=== PATIENT | male | born 1975 | race Caucasian/White ===

== ENCOUNTER 2017-12-07 04:36 | Emergency (ER) | payer MEDICARE ==
[2017-12-07] MEDS ORDERED: HYDROMORPHONE 1 MG/1 ML AMP ONE (05:00)
== END 2017-12-07 05:23 | disposition home or self-care (01) ==
LOC: EDH 04:36
DX: M25.561 Pain in right knee (principal); M25.562 Pain in left knee; N18.6 End stage renal disease; Z99.2 Dependence on renal dialysis; Z88.5 Allergy status to narcotic agent; Z88.6 Allergy status to analgesic agent; Z88.8 Allergy status to other drugs, medicaments and biological substances
CPT/HCPCS: 96372; 99283; J1170

== ENCOUNTER 2017-12-28 18:05 | Emergency (ER) | payer MEDICARE | END 2017-12-28 20:19 | disposition home or self-care (01) | LOC: EDH 18:05 | DX: S80.01XA Contusion of right knee, initial encounter (principal); N18.6 End stage renal disease; Z99.2 Dependence on renal dialysis; Z98.890 Other specified postprocedural states; Z88.6 Allergy status to analgesic agent; Z88.8 Allergy status to other drugs, medicaments and biological substances; W18.39XA Other fall on same level, initial encounter; Y93.89 Activity, other specified; Y92.89 Other specified places as the place of occurrence of the external cause; Y99.8 Other external cause status | CPT/HCPCS: 73562 ==

== ENCOUNTER 2017-12-30 00:33 | Emergency (ER) | payer MEDICARE ==
[2017-12-30 01:37] LABS: BASOPHILS % (AUTO) 0.7 % (0.0-5.0); HEMATOCRIT 33.1 % (42-54); LYMPHOCYTES % (AUTO) 30.7 % (21.0-51.0); MEAN CORPUSCULAR HEMOGLOBIN 31.3 pg (27.0-33.0); MEAN CORPUSCULAR HGB CONC 33.7 g/dL (32.0-36.0); MEAN CORPUSCULAR VOLUME 92.8 fL (79-99); MONOCYTES % (AUTO) 12.3 % (3.0-13.0); NEUTROPHILS % (AUTO) 54.3 % (40.0-77.0); NUCLEATED RED BLOOD CELLS 0.1 % (0.0-0.19); PLATELET COUNT (AUTO) 154 K/uL (130-400); RED BLOOD CELL COUNT(AUTO) 3.57 MIL/uL (4.50-6.20); RED CELL DISTRIBUTION WIDTH 18.7 % (11.0-15.5); WHITE BLOOD COUNT (AUTO) 4.9 K/uL (4.8-10.8)
[2017-12-30 01:52] LABS: ALBUMIN 3.6 g/dL (3.5-5.0); BILIRUBIN,TOTAL 0.5 mg/dL (0.2-1.0); POTASSIUM 4.9 mmol/L (3.5-5.1); TOTAL PROTEIN, SERUM 8.7 g/dL (6.0-8.3)
[2017-12-30 02:01] LABS: CREATININE 12.5 mg/dL (0.5-1.5)
[2017-12-30] MEDS ORDERED: HYOSCYAMINE SULFATE 0.125 MG TAB.SUBL SL ONE (02:28)
== END 2017-12-30 02:41 | disposition home or self-care (01) ==
LOC: EDH 00:33
DX: N18.6 End stage renal disease (principal); R10.84 Generalized abdominal pain; Z99.2 Dependence on renal dialysis; Z87.891 Personal history of nicotine dependence; Z88.6 Allergy status to analgesic agent; Z88.5 Allergy status to narcotic agent; Z88.8 Allergy status to other drugs, medicaments and biological substances
CPT/HCPCS: 36415; 80053; 82150; 83690; 85025

== ENCOUNTER 2018-02-10 00:09 | Emergency (ER) | payer MEDICARE ==
[2018-02-10] MEDS ORDERED: ACETAMINOPHEN-CODEINE ELIXIR 5 ML UDCUP ONE ×2 (00:27→02:40)
[2018-02-10] MEDS ORDERED: ACETAMINOPHEN ELIXIR 650 MG/20.3 ML UDCUP ONE (00:30)
[2018-02-10 00:53] LABS: BASOPHILS % (AUTO) 0.6 % (0.0-5.0); EOSINOPHILS % (AUTO) 4.4 % (0.0-8.0); HEMATOCRIT 22.9 % (42-54); LYMPHOCYTES % (AUTO) 25.1 % (21.0-51.0); MEAN CORPUSCULAR HEMOGLOBIN 31.3 pg (27.0-33.0); MEAN CORPUSCULAR HGB CONC 33.4 g/dL (32.0-36.0); MONOCYTES % (AUTO) 10.5 % (3.0-13.0); NEUTROPHILS % (AUTO) 59.4 % (40.0-77.0); NUCLEATED RED BLOOD CELLS 0.1 % (0.0-0.19); PLATELET COUNT (AUTO) 115 K/uL (130-400); RED BLOOD CELL COUNT(AUTO) 2.43 MIL/uL (4.50-6.20); WHITE BLOOD COUNT (AUTO) 4.3 K/uL (4.8-10.8)
[2018-02-10 01:04] LABS: ALBUMIN 2.8 g/dL (3.5-5.0); BILIRUBIN,TOTAL 0.3 mg/dL (0.2-1.0); POTASSIUM 5.5 mmol/L (3.5-5.1); TOTAL PROTEIN, SERUM 7.4 g/dL (6.0-8.3)
[2018-02-10] MEDS ORDERED: SODIUM CHLORIDE 0.9% 1000ML 1,000 ML IV ONE (01:07)
[2018-02-10] MEDS ORDERED: IOPAMIDOL-370 75 ML VIAL IV ONE (01:10)
[2018-02-10 02:19] LABS: APPEARANCE,URINE Turbid (CLEAR); BILIRUBIN,URINE Negative (NEGATIVE); COLOR,URINE Orange (YELLOW); GLUCOSE, URINE (UA) TRACE mg/dL (NEGATIVE); KETONES,URINE Negative (NEGATIVE); LEUKOCYTE ESTERASE ,URINE Moderate (NEGATIVE); NITRATE,URINE Negative (NEGATIVE); OCCULT BLOOD,URINE Large (NEGATIVE); PH,URINE >=9.0 (5.0-8.0); PROTEIN,URINE >=1000 (NEGATIVE); UROBILINOGEN,URINE 0.2 mg/dL (0.2-1.0)
[2018-02-10 02:32] LABS: BACTERIA,URINE Few /HPF (None Seen); RBC,URINE 51-100 /HPF (0-1); WBC,URINE 51-100 /HPF (0-1)
[2018-02-10] MEDS ORDERED: CEFTRIAXONE SODIUM 1 GM ONE (02:40)
[2018-02-10] MEDS ORDERED: LIDOCAINE HCL-MPF 1% 2ML VIAL ONE (02:40)
[2018-02-10] MEDS ORDERED: SODIUM POLYSTYRENE SULFONATE 15 GM/60 ML ML ONE (02:40)
== END 2018-02-10 02:54 | disposition home or self-care (01) ==
LOC: EDH 00:09
DX: N39.0 Urinary tract infection, site not specified (principal); N18.6 End stage renal disease; Z99.2 Dependence on renal dialysis; Z88.5 Allergy status to narcotic agent; Z88.6 Allergy status to analgesic agent; Z88.8 Allergy status to other drugs, medicaments and biological substances
CPT/HCPCS: 36415; 74176; 80053; 81001; 85025; 96372; 99285; J0696; J3490; J7030; Q9967

== ENCOUNTER 2018-05-29 14:41 | Emergency (ER) | payer MEDICARE ==
[2018-05-29 16:21] LABS: BASOPHILS % (AUTO) 0.4 % (0.0-5.0); EOSINOPHILS % (AUTO) 4.1 % (0.0-8.0); HEMATOCRIT 21.8 % (42-54); MEAN CORPUSCULAR HEMOGLOBIN 31.1 pg (27.0-33.0); MEAN CORPUSCULAR HGB CONC 33.3 g/dL (32.0-36.0); MEAN CORPUSCULAR VOLUME 93.5 fL (79-99); MONOCYTES % (AUTO) 8.6 % (3.0-13.0); NEUTROPHILS % (AUTO) 63.9 % (40.0-77.0); PLATELET COUNT (AUTO) 135 K/uL (130-400); RED BLOOD CELL COUNT(AUTO) 2.33 MIL/uL (4.50-6.20); RED CELL DISTRIBUTION WIDTH 22.1 % (11.0-15.5); WHITE BLOOD COUNT (AUTO) 3.4 K/uL (4.8-10.8)
[2018-05-29] MEDS ORDERED: SODIUM CHLORIDE 0.9% 1000ML 1,000 ML IV ONE (16:25)
[2018-05-29] MEDS ORDERED: ONDANSETRON HCL 4 MG/2 ML VIAL ONE (16:25)
[2018-05-29] MEDS ORDERED: HYDROMORPHONE 1 MG/1 ML AMP ONE ×2 (16:26→18:04)
[2018-05-29 16:32] LABS: CREATININE 6.2 mg/dL (0.5-1.5); POTASSIUM 4.8 mmol/L (3.5-5.1)
[2018-05-29 16:36] LABS: ALBUMIN 2.5 g/dL (3.5-5.0); BILIRUBIN,TOTAL 0.4 mg/dL (0.2-1.0); TOTAL PROTEIN, SERUM 7.8 g/dL (6.0-8.3)
== END 2018-05-29 18:36 | disposition home or self-care (01) ==
LOC: EDH 14:41
DX: R10.31 Right lower quadrant pain (principal); D64.9 Anemia, unspecified; N18.6 End stage renal disease; Z94.0 Kidney transplant status; Z91.041 Radiographic dye allergy status; Z88.6 Allergy status to analgesic agent; Z88.8 Allergy status to other drugs, medicaments and biological substances; Z99.2 Dependence on renal dialysis
CPT/HCPCS: 36415; 74176; 80053; 83605; 83690; 85025; 87040 ×2; 96374; 96375; 96376; 99285; J1170 ×2; J2405; J7030

== ENCOUNTER 2018-06-06 21:31 | Inpatient (IN) | payer MEDICARE ==
[~2018-06-06] VITALS: Ht 182.9 cm; Wt 81.1 kg
[2018-06-06] MEDS ORDERED: ACETAMINOPHEN-CODEINE ELIXIR 5 ML UDCUP ONE (22:10)
[2018-06-06 22:26] LABS: BASOPHILS % (AUTO) 2.4 % (0.0-5.0); EOSINOPHILS % (AUTO) 5.2 % (0.0-8.0); HEMATOCRIT 23.6 % (42-54); LYMPHOCYTES % (AUTO) 29.7 % (21.0-51.0); MEAN CORPUSCULAR HEMOGLOBIN 31.2 pg (27.0-33.0); MEAN CORPUSCULAR HGB CONC 32.7 g/dL (32.0-36.0); MEAN CORPUSCULAR VOLUME 95.2 fL (79-99); MONOCYTES % (AUTO) 8.9 % (3.0-13.0); NEUTROPHILS % (AUTO) 53.8 % (40.0-77.0); PLATELET COUNT (AUTO) 149 K/uL (130-400); RED BLOOD CELL COUNT(AUTO) 2.48 MIL/uL (4.50-6.20); RED CELL DISTRIBUTION WIDTH 21.5 % (11.0-15.5); WHITE BLOOD COUNT (AUTO) 3.2 K/uL (4.8-10.8)
[2018-06-06 22:41] LABS: ALBUMIN 2.6 g/dL (3.5-5.0); BILIRUBIN,TOTAL 0.4 mg/dL (0.2-1.0); POTASSIUM 5.2 mmol/L (3.5-5.1); TOTAL PROTEIN, SERUM 7.4 g/dL (6.0-8.3)
[2018-06-06 22:46] LABS: CREATININE 10.1 mg/dL (0.5-1.5)
[2018-06-07 01:27] VITALS: BP 133/80
[2018-06-07] MEDS ORDERED: ACETAMINOPHEN 325 MG TAB PO PRN (02:15)
[2018-06-07] MEDS ORDERED: HYDROMORPHONE HCL 2 MG/ML VIAL IVP PRN ×2 (02:15→13:45)
[2018-06-07] MEDS ORDERED: PROMETHAZINE HCL 25 MG/ML 1ML AMPULE IM PRN (02:15)
[2018-06-07] MEDS ORDERED: HYDROMORPHONE 1 MG/1 ML AMP ONE ×2 (02:16→06:12)
[2018-06-07] MEDS ORDERED: ZOSYN 3.375GM+NS 50ML 50 ML IV ONE (02:21)
[2018-06-07] MEDS ORDERED: LORA2TAB2 PO (03:33)
[2018-06-07] MEDS ORDERED: ZOLP10TA2 PO (03:33)
[2018-06-07] MEDS ORDERED: HYDR4TAB4 PO (03:33)
[2018-06-07] MEDS: ZOSYN 3.375GM+NS 50ML 50 ML IV SCH ×2 (03:35→17:06)
[2018-06-07 04:06] VITALS: BP 140/84
[2018-06-07 08:00] VITALS: BP 141/81
[2018-06-07] MEDS ORDERED: MORPHINE SULFATE 2 MG/ML 1ML SYG IM ONE (08:45)
[2018-06-07] MEDS ORDERED: HYDROMORPHONE HCL 2 MG/ML VIAL IVP SCH (08:45)
[2018-06-07] MEDS: PANTOPRAZOLE SODIUM 40 MG TABLET.DR PO SCH (08:46)
[2018-06-07] MEDS: ENOXAPARIN SODIUM 30 MG/0.3 ML SQ SCH ×2 (08:48→08:51)
[2018-06-07] MEDS ORDERED: ALBUMIN (HUMAN) 25% 100 ML IV PRN (10:00)
[2018-06-07] MEDS ORDERED: 0.9% SODIUM CHLORIDE 250 ML IV BAG IV PRN (10:00)
[2018-06-07] MEDS ORDERED: SODIUM CHLORIDE 0.9% 1000ML 1,000 ML IV PRN (10:00)
[2018-06-07 10:22] LABS: BASOPHILS % (AUTO) 3.6 % (0.0-5.0); EOSINOPHILS % (AUTO) 4.6 % (0.0-8.0); HEMATOCRIT 22.1 % (42-54); LYMPHOCYTES % (AUTO) 27.7 % (21.0-51.0); MEAN CORPUSCULAR HGB CONC 32.9 g/dL (32.0-36.0); MEAN CORPUSCULAR VOLUME 94.3 fL (79-99); MONOCYTES % (AUTO) 8.1 % (3.0-13.0); PLATELET COUNT (AUTO) 120 K/uL (130-400); RED BLOOD CELL COUNT(AUTO) 2.34 MIL/uL (4.50-6.20); RED CELL DISTRIBUTION WIDTH 21.3 % (11.0-15.5); WHITE BLOOD COUNT (AUTO) 3.4 K/uL (4.8-10.8)
[2018-06-07 10:48] LABS: INR 1.12 (0.85-1.15); PARTIAL THROMBOPLASTIN TIME 34.2 SEC (26.3-35.5); PROTHROMBIN TIME 11.7 SEC (9.6-11.6)
[2018-06-07 10:50] LABS: ALBUMIN 2.5 g/dL (3.5-5.0); BILIRUBIN,TOTAL 0.4 mg/dL (0.2-1.0)
[2018-06-07 11:17] LABS: CREATININE 10.8 mg/dL (0.5-1.5)
[2018-06-07 11:18] LABS: POTASSIUM 5.5 mmol/L (3.5-5.1)
[2018-06-07] MEDS ORDERED: ZOLPIDEM TARTRATE 5 MG TAB PO PRN (11:30)
[2018-06-07] MEDS ORDERED: HYDROMORPHONE HCL 2 MG TAB PO PRN (11:30)
[2018-06-07 11:42] VITALS: BP 144/93
[2018-06-07] MEDS: HEPARIN SODIUM 5000UNIT/ML 1ML VIAL IJ PRN (12:55)
[2018-06-07] MEDS: HYDROMORPHONE 1 MG/1 ML AMP IVP PRN ×3 (14:01→22:05)
[2018-06-07 16:00] VITALS: BP 138/82
[2018-06-07] MEDS: EPOETIN ALFA 10,000 UNIT/ML VIAL SQ SCH (19:27)
[2018-06-07 20:00] VITALS: BP 130/78
[2018-06-08] VITALS (7 sets, daily range): BP systolic 139–159; BP diastolic 82–93
[2018-06-08] MEDS: HYDROMORPHONE 1 MG/1 ML AMP IVP PRN ×6 (02:03→22:26)
[2018-06-08 03:53] LABS: BASOPHILS % (AUTO) 0.7 % (0.0-5.0); EOSINOPHILS % (AUTO) 5.5 % (0.0-8.0); LYMPHOCYTES % (AUTO) 27.3 % (21.0-51.0); MEAN CORPUSCULAR HEMOGLOBIN 31.2 pg (27.0-33.0); MEAN CORPUSCULAR HGB CONC 33.3 g/dL (32.0-36.0); MEAN CORPUSCULAR VOLUME 93.6 fL (79-99); NEUTROPHILS % (AUTO) 57.5 % (40.0-77.0); PLATELET COUNT (AUTO) 139 K/uL (130-400); RED BLOOD CELL COUNT(AUTO) 2.45 MIL/uL (4.50-6.20); RED CELL DISTRIBUTION WIDTH 21.4 % (11.0-15.5); WHITE BLOOD COUNT (AUTO) 3.7 K/uL (4.8-10.8)
[2018-06-08 04:09] LABS: % IRON SATURATION 43.2 % (30-44)
[2018-06-08 04:20] LABS: ALBUMIN 2.5 g/dL (3.5-5.0); BILIRUBIN,TOTAL 0.4 mg/dL (0.2-1.0); CREATININE 7.2 mg/dL (0.5-1.5); PHOSPHORUS 6.3 mg/dL (2.5-4.9); POTASSIUM 4.8 mmol/L (3.5-5.1)
[2018-06-08] MEDS: ZOSYN 3.375GM+NS 50ML 50 ML IV SCH ×2 (06:30→18:07)
[2018-06-08] MEDS: ENOXAPARIN SODIUM 30 MG/0.3 ML SQ SCH (10:17)
[2018-06-08] MEDS: PANTOPRAZOLE SODIUM 40 MG TABLET.DR PO SCH (10:17)
[2018-06-08] MEDS: EPOETIN ALFA 10,000 UNIT/ML VIAL SQ SCH (17:28)
[2018-06-09] MEDS: HYDROMORPHONE 1 MG/1 ML AMP IVP PRN ×3 (02:26→10:36)
[2018-06-09 03:00] VITALS: BP 138/84
[2018-06-09 04:14] LABS: HEPATITIS Bs ANTIGEN SCREEN P Negative (Negative)
[2018-06-09] MEDS: ZOSYN 3.375GM+NS 50ML 50 ML IV SCH ×2 (05:00→06:28)
[2018-06-09 05:05] LABS: HEMATOCRIT 24.3 % (42-54); MEAN CORPUSCULAR HEMOGLOBIN 30.4 pg (27.0-33.0); MEAN CORPUSCULAR HGB CONC 32.4 g/dL (32.0-36.0); MEAN CORPUSCULAR VOLUME 93.9 fL (79-99); PLATELET COUNT (AUTO) 116 K/uL (130-400); RED BLOOD CELL COUNT(AUTO) 2.59 MIL/uL (4.50-6.20); RED CELL DISTRIBUTION WIDTH 21.1 % (11.0-15.5); WHITE BLOOD COUNT (AUTO) 3.9 K/uL (4.8-10.8)
[2018-06-09 05:26] LABS: LYMPHOCYTES % (MANUAL) 28 % (22-44); MAN.DIFF COMMENT-IMPRESSION MANUAL DIFFERENTIAL; MONOCYTES % (MANUAL) 4 % (2-9); PLATELET MORPHOLOGY COMMENT SLIGHTLY DECREASED; SEGMENTED NEUTROPHILS % 68 % (40-70)
[2018-06-09 05:38] LABS: PHOSPHORUS 6.6 mg/dL (2.5-4.9); POTASSIUM 5.2 mmol/L (3.5-5.1)
[2018-06-09 05:44] LABS: CREATININE 9.1 mg/dL (0.5-1.5)
[2018-06-09] MEDS ORDERED: EPOETIN ALFA 10,000 UNIT/ML VIAL SQ SCH (08:00)
[2018-06-09 08:13] VITALS: BP 149/93
[2018-06-09] MEDS: ENOXAPARIN SODIUM 30 MG/0.3 ML SQ SCH (09:00)
[2018-06-09] MEDS: PANTOPRAZOLE SODIUM 40 MG TABLET.DR PO SCH (09:00)
[2018-06-09] MEDS: HEPARIN SODIUM 5000UNIT/ML 1ML VIAL IJ PRN (10:11)
[2018-06-09 11:47] VITALS: BP 133/88
== END 2018-06-09 12:55 | disposition home or self-care (01) | DRG 640 ==
LOC: EDH 21:31 → EDHIP 06-07 00:17 → 3AH 06-07 00:47
PROVIDERS: ADMIT Internal Medicine; ATTEND Internal Medicine
PROC: 5A1D70Z Performance of Urinary Filtration, Intermittent, Less than 6 Hours Per Day (ICD-10-PCS; principal; 2018-06-07)
PROC: 5A1D70Z Performance of Urinary Filtration, Intermittent, Less than 6 Hours Per Day (ICD-10-PCS; 2018-06-09)
DX: E87.70 Fluid overload, unspecified (principal); N18.6 End stage renal disease; E43 Unspecified severe protein-calorie malnutrition; F11.20 Opioid dependence, uncomplicated; K86.1 Other chronic pancreatitis; I12.0 Hypertensive chronic kidney disease with stage 5 chronic kidney disease or end stage renal disease; E87.5 Hyperkalemia; D63.1 Anemia in chronic kidney disease; D72.819 Decreased white blood cell count, unspecified; E78.00 Pure hypercholesterolemia, unspecified; G89.29 Other chronic pain; K59.00 Constipation, unspecified; R06.01 Orthopnea; Z96.659 Presence of unspecified artificial knee joint; Z68.24 Body mass index [BMI] 24.0-24.9, adult; Z88.5 Allergy status to narcotic agent; Z88.8 Allergy status to other drugs, medicaments and biological substances; Z91.19 Patient's noncompliance with other medical treatment and regimen; Z91.15 Patient's noncompliance with renal dialysis; Z99.2 Dependence on renal dialysis; Z90.5 Acquired absence of kidney; Z98.85 Transplanted organ removal status; Z80.0 Family history of malignant neoplasm of digestive organs
CPT/HCPCS: 36415; 71045; 80048; 80053; 83540; 83550; 84100; 85025; 85610; 85730; 86704; 86706; 87040; 87070; 87076; 87077; 87186; 87340; 87520; 90935; 93005; J0885; J1170; J1644; J1650; J2543; J2550; J7030

== ENCOUNTER 2018-06-28 08:36 | Emergency (ER) | payer MEDICARE ==
[~2018-06-28 08:36] MED LIST: HYDR4TAB4 PO; LORA2TAB2 PO; ZOLP10TA2 PO
[2018-06-28 09:00] LABS: BASOPHILS % (AUTO) 0.9 % (0.0-5.0); EOSINOPHILS % (AUTO) 3.6 % (0.0-8.0); HEMATOCRIT 29.5 % (42-54); LYMPHOCYTES % (AUTO) 32.2 % (21.0-51.0); MEAN CORPUSCULAR HEMOGLOBIN 32.8 pg (27.0-33.0); MEAN CORPUSCULAR HGB CONC 33.7 g/dL (32.0-36.0); MEAN CORPUSCULAR VOLUME 97.5 fL (79-99); MONOCYTES % (AUTO) 9.1 % (3.0-13.0); NEUTROPHILS % (AUTO) 54.2 % (40.0-77.0); PLATELET COUNT (AUTO) 168 K/uL (130-400); RED BLOOD CELL COUNT(AUTO) 3.03 MIL/uL (4.50-6.20); RED CELL DISTRIBUTION WIDTH 21.4 % (11.0-15.5); WHITE BLOOD COUNT (AUTO) 3.6 K/uL (4.8-10.8)
[2018-06-28 09:07] LABS: CREATININE 5.1 mg/dL (0.5-1.5); POTASSIUM 4.1 mmol/L (3.5-5.1)
[2018-06-28 09:11] LABS: ALBUMIN 3.6 g/dL (3.5-5.0); BILIRUBIN,TOTAL 0.4 mg/dL (0.2-1.0); TOTAL PROTEIN, SERUM 8.9 g/dL (6.0-8.3)
== END 2018-06-28 12:32 | disposition left against medical advice (07) ==
LOC: EDH 08:36
DX: R07.89 Other chest pain (principal); N18.6 End stage renal disease; Z99.2 Dependence on renal dialysis; Z94.0 Kidney transplant status; Z88.6 Allergy status to analgesic agent; Z88.5 Allergy status to narcotic agent; Z88.8 Allergy status to other drugs, medicaments and biological substances; Z91.041 Radiographic dye allergy status
CPT/HCPCS: 36415; 71045; 80053; 83690; 84484; 85025; 93005; 93990

== ENCOUNTER 2018-08-12 20:19 | Emergency (ER) | payer MEDICARE ==
[~2018-08-12 20:19] MED LIST changes: +AMOX-426 PO
[2018-08-12] MEDS ORDERED: HYDROMORPHONE 1 MG/1 ML AMP ONE (22:40)
[2018-08-12 23:51] LABS: BASOPHILS % (AUTO) 0.5 % (0.0-5.0); HEMATOCRIT 23.4 % (42-54); LYMPHOCYTES % (AUTO) 24.3 % (21.0-51.0); MEAN CORPUSCULAR HGB CONC 32.9 g/dL (32.0-36.0); MEAN CORPUSCULAR VOLUME 100.1 fL (79-99); NEUTROPHILS % (AUTO) 62.2 % (40.0-77.0); NUCLEATED RED BLOOD CELLS 0.1 % (0.0-0.19); PLATELET COUNT (AUTO) 100 K/uL (130-400); RED BLOOD CELL COUNT(AUTO) 2.33 MIL/uL (4.50-6.20); RED CELL DISTRIBUTION WIDTH 20.1 % (11.0-15.5); WHITE BLOOD COUNT (AUTO) 3.1 K/uL (4.8-10.8)
[2018-08-13 00:02] LABS: CREATININE 6.8 mg/dL (0.5-1.5); POTASSIUM 5.9 mmol/L (3.5-5.1)
[2018-08-13] MEDS ORDERED: HYDROMORPHONE 1 MG/1 ML AMP ONE (00:31)
== END 2018-08-13 02:30 | disposition home or self-care (01) ==
LOC: EDH 20:19
DX: D61.818 Other pancytopenia (principal); N18.6 End stage renal disease; Z99.2 Dependence on renal dialysis; Z94.0 Kidney transplant status; Z88.6 Allergy status to analgesic agent; Z88.8 Allergy status to other drugs, medicaments and biological substances; Z88.1 Allergy status to other antibiotic agents; Z91.041 Radiographic dye allergy status
CPT/HCPCS: 36415; 74176; 80048; 82270; 85025; 85651; 86140; 87040; 96374; 96376; 99284; J1170 ×2

== ENCOUNTER 2018-08-13 22:51 | Emergency (ER) | payer MEDICARE ==
[2018-08-13 23:24] LABS: WHITE BLOOD COUNT (AUTO) 2.8 K/uL (4.8-10.8)
[2018-08-13 23:30] LABS: CREATININE 4.4 mg/dL (0.5-1.5); POTASSIUM 5.3 mmol/L (3.5-5.1)
[2018-08-13 23:34] LABS: ALBUMIN 3.2 g/dL (3.5-5.0); BILIRUBIN,TOTAL 0.4 mg/dL (0.2-1.0); TOTAL PROTEIN, SERUM 7.4 g/dL (6.0-8.3)
[2018-08-13 23:41] LABS: BASOPHILS % (AUTO) 0.7 % (0.0-5.0); EOSINOPHILS % (AUTO) 5.3 % (0.0-8.0); HEMATOCRIT 24.8 % (42-54); LYMPHOCYTES % (AUTO) 24.6 % (21.0-51.0); MEAN CORPUSCULAR HEMOGLOBIN 32.4 pg (27.0-33.0); MEAN CORPUSCULAR HGB CONC 32.7 g/dL (32.0-36.0); MEAN CORPUSCULAR VOLUME 99.1 fL (79-99); MONOCYTES % (AUTO) 9.4 % (3.0-13.0); NUCLEATED RED BLOOD CELLS 0.1 % (0.0-0.19); PLATELET COUNT (AUTO) 111 K/uL (130-400); RED CELL DISTRIBUTION WIDTH 20.1 % (11.0-15.5)
[2018-08-13] MEDS ORDERED: PROMETHAZINE HCL 25 MG/ML 1ML AMPULE IM ONE (23:45)
[2018-08-14 00:10] LABS: EOSINOPHILS % (MANUAL) 5 % (1-6); LYMPHOCYTES % (MANUAL) 26 % (22-44); MAN.DIFF COMMENT-IMPRESSION MANUAL DIFFERENTIAL; MONOCYTES % (MANUAL) 11 % (2-9); SEGMENTED NEUTROPHILS % 58 % (40-70)
[2018-08-14 00:12] LABS: PLATELET MORPHOLOGY COMMENT SLIGHTLY DECREASED
[2018-08-14] MEDS ORDERED: TRAMADOL HCL 50 MG TABLET ONE (00:47)
== END 2018-08-14 01:01 | disposition home or self-care (01) ==
LOC: EDH 22:51
DX: G89.29 Other chronic pain (principal); R10.9 Unspecified abdominal pain; D61.818 Other pancytopenia; N18.6 End stage renal disease; Z99.2 Dependence on renal dialysis; Z94.0 Kidney transplant status; Z88.6 Allergy status to analgesic agent; Z88.5 Allergy status to narcotic agent; Z88.1 Allergy status to other antibiotic agents; Z88.8 Allergy status to other drugs, medicaments and biological substances; Z91.041 Radiographic dye allergy status
CPT/HCPCS: 36415; 80053; 83690; 85025; 96372; 99283; J2550

== ENCOUNTER 2018-08-19 14:07 | Emergency (ER) | payer MEDICARE | END 2018-08-19 15:32 | disposition home or self-care (01) | LOC: EDH 14:07 | DX: G89.29 Other chronic pain (principal); R10.11 Right upper quadrant pain; R10.31 Right lower quadrant pain; N18.6 End stage renal disease; Z99.2 Dependence on renal dialysis; Z94.0 Kidney transplant status; Z98.890 Other specified postprocedural states; Z88.5 Allergy status to narcotic agent; Z88.6 Allergy status to analgesic agent; Z91.041 Radiographic dye allergy status; Z88.8 Allergy status to other drugs, medicaments and biological substances ==

== ENCOUNTER 2018-10-26 16:51 | Inpatient (IN) | payer MEDICARE ==
[2018-10-26 17:48] LABS: BASOPHILS % (AUTO) 2.8 % (0.0-5.0); EOSINOPHILS % (AUTO) 3.1 % (0.0-8.0); LYMPHOCYTES % (AUTO) 25.9 % (21.0-51.0); MEAN CORPUSCULAR HEMOGLOBIN 30.8 pg (27.0-33.0); MEAN CORPUSCULAR HGB CONC 32.5 g/dL (32.0-36.0); MONOCYTES % (AUTO) 5.8 % (3.0-13.0); NEUTROPHILS % (AUTO) 62.4 % (40.0-77.0); PLATELET COUNT (AUTO) 128 K/uL (130-400); RED BLOOD CELL COUNT(AUTO) 2.13 MIL/uL (4.50-6.20); RED CELL DISTRIBUTION WIDTH 19.7 % (11.0-15.5); WHITE BLOOD COUNT (AUTO) 4.4 K/uL (4.8-10.8)
[2018-10-26 18:01] LABS: INR 1.11 (0.85-1.15); PROTHROMBIN TIME 11.6 SEC (9.6-11.6)
[2018-10-26 18:03] LABS: ALBUMIN 2.8 g/dL (3.5-5.0); BILIRUBIN,TOTAL 0.5 mg/dL (0.2-1.0); TOTAL PROTEIN, SERUM 6.9 g/dL (6.0-8.3)
[2018-10-26 18:05] LABS: CREATININE 9.5 mg/dL (0.5-1.5); POTASSIUM 6.7 mmol/L (3.5-5.1)
[2018-10-26 18:17] LABS: HEMATOCRIT 20.3 % (42-54)
[2018-10-26] MEDS ORDERED: DEXTROSE 50%-WATER 50 ML DISP.SYRIN IV ONE (19:57)
[2018-10-26] MEDS ORDERED: SODIUM BICARB 50MEQ 50ML VIAL ONE (19:57)
[2018-10-26] MEDS ORDERED: CALCIUM GLUCONATE 1 GM/10 ML VIAL IV ONE (19:57)
[2018-10-26] MEDS ORDERED: INSULIN HUMULIN R 100 UNIT/ML 3ML ONE (19:58)
[2018-10-26] MEDS ORDERED: LORAZEPAM 2 MG TABLET PO PRN (20:00)
[2018-10-26] MEDS ORDERED: ZOLPIDEM TARTRATE 5 MG TAB PO PRN (20:00)
[2018-10-26] MEDS ORDERED: HYDROMORPHONE 1 MG/1 ML AMP ONE (20:02)
[2018-10-26] MEDS ORDERED: ALBUTEROL SULFATE 0.083% 2.5 MG/3 ML INH IH ONE (20:31)
[2018-10-26] MEDS ORDERED: SODIUM CHLORIDE 0.9% 100 ML IV ONE (21:50)
[2018-10-26 23:00] VITALS: BP 147/101
[2018-10-27] MEDS: HYDROMORPHONE HCL 2 MG TAB PO PRN ×2 (00:13→02:14)
--- NOTE | 2018-10-27 00:28 | NUR ---
PT REFUSED DILAUDID 4 MG PO AND REQUESTING MD TO CHANGE MEDICATION TO IV. MD PAGED; AWAITING CALL BACK.
[2018-10-27 03:49] LABS: BASOPHILS % (AUTO) 0.4 % (0.0-5.0); EOSINOPHILS % (AUTO) 4.4 % (0.0-8.0); LYMPHOCYTES % (AUTO) 33.5 % (21.0-51.0); MEAN CORPUSCULAR HEMOGLOBIN 31.5 pg (27.0-33.0); MEAN CORPUSCULAR HGB CONC 33.6 g/dL (32.0-36.0); MEAN CORPUSCULAR VOLUME 93.6 fL (79-99); MONOCYTES % (AUTO) 7.8 % (3.0-13.0); NEUTROPHILS % (AUTO) 53.9 % (40.0-77.0); PLATELET COUNT (AUTO) 108 K/uL (130-400); RED BLOOD CELL COUNT(AUTO) 1.76 MIL/uL (4.50-6.20); RED CELL DISTRIBUTION WIDTH 19.6 % (11.0-15.5); WHITE BLOOD COUNT (AUTO) 3.5 K/uL (4.8-10.8)
[2018-10-27 03:56] LABS: INR 1.13 (0.85-1.15); PARTIAL THROMBOPLASTIN TIME 32.9 SEC (26.3-35.5); PROTHROMBIN TIME 11.8 SEC (9.6-11.6)
[2018-10-27 04:03] LABS: HEMATOCRIT 16.5 % (42-54)
[2018-10-27 04:10] LABS: ALBUMIN 2.6 g/dL (3.5-5.0); BILIRUBIN,TOTAL 0.4 mg/dL (0.2-1.0); TOTAL PROTEIN, SERUM 6.1 g/dL (6.0-8.3)
[2018-10-27 04:13] LABS: CREATININE 10.3 mg/dL (0.5-1.5); POTASSIUM 6.1 mmol/L (3.5-5.1)
[2018-10-27 04:46] VITALS: BP 154/99
--- NOTE | 2018-10-27 06:00 | NUR ---
REFUSAL OF TREATMENT PT REFUSING PROTONIX DRIP. TEACHING PROVIDED ON IMPORTANCE OF MEDICAL TREATMENT COMPLIANCE, BUT STILL REFUSES. WILL CONT TO MONITOR.
--- NOTE | 2018-10-27 07:10 | NUR ---
DR. GOODSON AT BEDSIDE. EXPLAINED TO PATIENT ABOUT AMA AND TREATMENT REFUSAL.
--- NOTE | 2018-10-27 07:30 | NUR ---
PATIENT SIGNED AMA PAPER AND TREATMENT REFUSAL FORM.
--- NOTE | 2018-10-27 07:43 | NUR ---
SPOKE WITH FREDRICK (NURSE) FROM [facility] ( [phone]) AND INFORMED OF PT REFUSING TREATMENT AND SIGNING AMA PAPERWORK ALONG WITH PT WANTING TO RETURN TO FACILITY. FREDRICK STATED THAT PT MIGHT NOT BE ABLE TO RETURN TO FACILITY DUE TO BEING AT [facility] SEVERAL HOURS. WAS ADVISED TO CALL AFTER 815AM AND SPEAK WITH KILLIAN (CLINICAL DIRECTOR). WENT INTO ROOM AND UPDATE PT AND ALSO PRIMARY CARE NURSE, GLO.
--- NOTE | 2018-10-27 08:33 | NUR ---
SPOKE WITH KILLIAN FROM [facility]. UPDATE GIVEN. STATES HE WILL BE COMING TO [facility] AND WILL MANAGER CLINICAL APPLICATIONS PATIENT AND SPEAK TO HIM. NOTIFIED PT. REPORTED OFF TO PRIMARY CARE NURSE, GLO.
--- NOTE | 2018-10-27 08:45 | NUR ---
CM CM UNABLE TO ASSES, PT LEAVING AMA
--- NOTE | 2018-10-27 08:50 | NUR ---
PATIENT TAKEN DOWNSTAIRS AND BY [employer] OFFICER. PATIENT WAITING FOR CAR RIDE.
[2018-10-27] MEDS ORDERED: PANTOPRAZOLE SODIUM 80 MG in SODIUM CHLORIDE 0.9% 100 ML IV SCH (21:00)
== END 2018-10-27 08:20 | disposition left against medical advice (07) | DRG 377 ==
LOC: EDH 16:51 → EDHIP 18:45 → 2BH 23:14
PROVIDERS: ADMIT Internal Medicine; ATTEND Internal Medicine
DX: K62.5 Hemorrhage of anus and rectum (principal); N18.6 End stage renal disease; K86.1 Other chronic pancreatitis; D62 Acute posthemorrhagic anemia; Z96.653 Presence of artificial knee joint, bilateral; F19.10 Other psychoactive substance abuse, uncomplicated; Z99.2 Dependence on renal dialysis; Z76.5 Malingerer [conscious simulation]; Z80.0 Family history of malignant neoplasm of digestive organs
CPT/HCPCS: 36415; 71045; 80053; 82270; 85025; 85060; 85610; 85730; 86850; 86900; 86901; 86922; 93005; 94640; 99291; C9113; G0378; J0610; J1170; J1815; J3490; J7070

== ENCOUNTER 2019-02-18 04:04 | Emergency (ER) | payer MEDICARE | END 2019-02-18 05:50 | disposition left against medical advice (07) | LOC: EDH 04:04 | DX: M54.5 Low back pain (principal); M62.838 Other muscle spasm; N18.6 End stage renal disease; Z88.6 Allergy status to analgesic agent; Z91.041 Radiographic dye allergy status; Z99.2 Dependence on renal dialysis; Z88.8 Allergy status to other drugs, medicaments and biological substances | CPT/HCPCS: 99281 ==

== ENCOUNTER 2019-02-19 07:07 | Emergency (ER) | payer MEDICARE ==
[2019-02-19 07:43] LABS: BASOPHILS % (AUTO) 0.4 % (0.0-5.0); HEMATOCRIT 26.2 % (42-54); LYMPHOCYTES % (AUTO) 33.2 % (21.0-51.0); MEAN CORPUSCULAR HEMOGLOBIN 34.3 pg (27.0-33.0); MEAN CORPUSCULAR HGB CONC 34.7 g/dL (32.0-36.0); MEAN CORPUSCULAR VOLUME 98.9 fL (79-99); MONOCYTES % (AUTO) 12.5 % (3.0-13.0); NEUTROPHILS % (AUTO) 45.9 % (40.0-77.0); NUCLEATED RED BLOOD CELLS 0.2 % (0.0-0.19); PLATELET COUNT (AUTO) 79 K/uL (130-400); RED BLOOD CELL COUNT(AUTO) 2.65 MIL/uL (4.50-6.20); RED CELL DISTRIBUTION WIDTH 16.4 % (11.0-15.5); WHITE BLOOD COUNT (AUTO) 2.4 K/uL (4.8-10.8)
[2019-02-19 07:54] LABS: CREATININE 6.1 mg/dL (0.5-1.5); POTASSIUM 4.6 mmol/L (3.5-5.1)
[2019-02-19 07:56] LABS: INR 1.02 (0.85-1.15); PARTIAL THROMBOPLASTIN TIME 31.7 SEC (26.3-35.5); PROTHROMBIN TIME 10.7 SEC (9.6-11.6)
[2019-02-19 07:58] LABS: ALBUMIN 3.5 g/dL (3.5-5.0); BILIRUBIN,TOTAL 0.5 mg/dL (0.2-1.0); TOTAL PROTEIN, SERUM 7.3 g/dL (6.0-8.3)
[2019-02-19 08:11] LABS: EOSINOPHILS % (MANUAL) 7 % (1-6); LYMPHOCYTES % (MANUAL) 34 % (22-44); MAN.DIFF COMMENT-IMPRESSION MANUAL DIFFERENTIAL; MONOCYTES % (MANUAL) 8 % (2-9); PLATELET MORPHOLOGY COMMENT DECREASED; SEGMENTED NEUTROPHILS % 51 % (40-70)
[2019-02-19] MEDS ORDERED: FAMOTIDINE/PF 20 MG/2 ML VIAL IV ONE (08:13)
== END 2019-02-19 09:24 | disposition left against medical advice (07) ==
LOC: EDH 07:07
DX: K85.90 Acute pancreatitis without necrosis or infection, unspecified (principal); I12.0 Hypertensive chronic kidney disease with stage 5 chronic kidney disease or end stage renal disease; N18.6 End stage renal disease; D61.818 Other pancytopenia; Z88.6 Allergy status to analgesic agent; Z91.041 Radiographic dye allergy status; Z88.8 Allergy status to other drugs, medicaments and biological substances; Z88.1 Allergy status to other antibiotic agents; Z99.2 Dependence on renal dialysis
CPT/HCPCS: 36415; 71045; 80053; 82150; 82550; 83690; 84484; 85025; 85610; 85730; 93005; J3490

== ENCOUNTER 2019-02-28 23:48 | Emergency (ER) | payer MEDICARE ==
[2019-03-01 00:45] LABS: EOSINOPHILS % (AUTO) 5.9 % (0.0-8.0); HEMATOCRIT 27.4 % (42-54); LYMPHOCYTES % (AUTO) 40.7 % (21.0-51.0); MEAN CORPUSCULAR HEMOGLOBIN 34.2 pg (27.0-33.0); MEAN CORPUSCULAR HGB CONC 34.5 g/dL (32.0-36.0); MEAN CORPUSCULAR VOLUME 98.9 fL (79-99); MONOCYTES % (AUTO) 12.1 % (3.0-13.0); NEUTROPHILS % (AUTO) 40.3 % (40.0-77.0); NUCLEATED RED BLOOD CELLS 0.2 % (0.0-0.19); PLATELET COUNT (AUTO) 136 K/uL (130-400); RED BLOOD CELL COUNT(AUTO) 2.77 MIL/uL (4.50-6.20); RED CELL DISTRIBUTION WIDTH 16.6 % (11.0-15.5); WHITE BLOOD COUNT (AUTO) 2.6 K/uL (4.8-10.8)
[2019-03-01 00:52] LABS: CREATININE 6.6 mg/dL (0.5-1.5); POTASSIUM 4.6 mmol/L (3.5-5.1)
[2019-03-01 00:56] LABS: ALBUMIN 3.7 g/dL (3.5-5.0); BILIRUBIN,DIRECT 0.2 mg/dL (0.0-0.3); BILIRUBIN,TOTAL 0.6 mg/dL (0.2-1.0); TOTAL PROTEIN, SERUM 7.8 g/dL (6.0-8.3)
[2019-03-01 01:01] LABS: EOSINOPHILS % (MANUAL) 4 % (1-6); LYMPHOCYTES % (MANUAL) 36 % (22-44); MAN.DIFF COMMENT-IMPRESSION MANUAL DIFFERENTIAL; MONOCYTES % (MANUAL) 16 % (2-9); SEGMENTED NEUTROPHILS % 44 % (40-70)
[2019-03-01 01:02] LABS: PLATELET MORPHOLOGY COMMENT ADEQUATE
== END 2019-03-01 02:18 | disposition home or self-care (01) ==
LOC: EDH 23:48
DX: R10.13 Epigastric pain (principal); R11.2 Nausea with vomiting, unspecified; R63.0 Anorexia; N18.6 End stage renal disease; Z91.041 Radiographic dye allergy status; Z88.6 Allergy status to analgesic agent; Z88.1 Allergy status to other antibiotic agents; Z88.5 Allergy status to narcotic agent; Z88.8 Allergy status to other drugs, medicaments and biological substances; Z99.2 Dependence on renal dialysis
CPT/HCPCS: 36415; 74176; 80048; 80076; 83690; 85025

== ENCOUNTER 2019-03-14 15:58 | Emergency (ER) | payer MEDICARE ==
[2019-03-14 16:48] LABS: BASOPHILS % (AUTO) 0.8 % (0.0-5.0); EOSINOPHILS % (AUTO) 5.6 % (0.0-8.0); HEMATOCRIT 24.4 % (42-54); LYMPHOCYTES % (AUTO) 37.7 % (21.0-51.0); MEAN CORPUSCULAR HEMOGLOBIN 34.2 pg (27.0-33.0); MEAN CORPUSCULAR VOLUME 100.6 fL (79-99); MONOCYTES % (AUTO) 8.4 % (3.0-13.0); NEUTROPHILS % (AUTO) 47.5 % (40.0-77.0); NUCLEATED RED BLOOD CELLS 0.1 % (0.0-0.19); PLATELET COUNT (AUTO) 96 K/uL (130-400); RED BLOOD CELL COUNT(AUTO) 2.42 MIL/uL (4.50-6.20); WHITE BLOOD COUNT (AUTO) 2.8 K/uL (4.8-10.8)
[2019-03-14 17:05] LABS: ALBUMIN 3.3 g/dL (3.5-5.0); BILIRUBIN,TOTAL 0.4 mg/dL (0.2-1.0); POTASSIUM 5.3 mmol/L (3.5-5.1); TOTAL PROTEIN, SERUM 6.6 g/dL (6.0-8.3)
[2019-03-14 17:11] LABS: CREATININE 12.5 mg/dL (0.5-1.5)
[2019-03-14 17:13] LABS: EOSINOPHILS % (MANUAL) 4 % (1-6); LYMPHOCYTES % (MANUAL) 45 % (22-44); MAN.DIFF COMMENT-IMPRESSION MANUAL DIFFERENTIAL; MONOCYTES % (MANUAL) 6 % (2-9); PLATELET MORPHOLOGY COMMENT DECREASED; SEGMENTED NEUTROPHILS % 45 % (40-70)
[2019-03-14] MEDS ORDERED: KETAMINE 50MG/ML SYRINGE 50 MG/ML DISP.SYRIN IV ONE (17:24)
[2019-03-14] MEDS ORDERED: SODIUM CHLORIDE 0.9% 50 ML IV ONE (17:30)
== END 2019-03-14 17:51 | disposition home or self-care (01) ==
LOC: EDH 15:58
DX: G89.29 Other chronic pain (principal); R10.10 Upper abdominal pain, unspecified; F41.1 Generalized anxiety disorder; N18.6 End stage renal disease; Z99.2 Dependence on renal dialysis; Z72.0 Tobacco use; Z88.5 Allergy status to narcotic agent; Z88.6 Allergy status to analgesic agent; Z88.2 Allergy status to sulfonamides; Z88.8 Allergy status to other drugs, medicaments and biological substances; Z91.041 Radiographic dye allergy status
CPT/HCPCS: 36415; 80053; 83690; 85025; 99284; J3490

== ENCOUNTER 2019-03-27 23:25 | Emergency (ER) | payer MEDICARE ==
[2019-03-28] MEDS ORDERED: HYDROMORPHONE 1 MG/1 ML AMP ONE ×2 (00:39→02:38)
[2019-03-28 01:44] LABS: BASOPHILS % (AUTO) 0.6 % (0.0-5.0); EOSINOPHILS % (AUTO) 2.6 % (0.0-8.0); HEMATOCRIT 31.6 % (42-54); LYMPHOCYTES % (AUTO) 30.1 % (21.0-51.0); MEAN CORPUSCULAR HEMOGLOBIN 33.6 pg (27.0-33.0); MEAN CORPUSCULAR HGB CONC 33.3 g/dL (32.0-36.0); MEAN CORPUSCULAR VOLUME 100.8 fL (79-99); MONOCYTES % (AUTO) 9.7 % (3.0-13.0); PLATELET COUNT (AUTO) 121 K/uL (130-400); RED BLOOD CELL COUNT(AUTO) 3.13 MIL/uL (4.50-6.20); WHITE BLOOD COUNT (AUTO) 3.6 K/uL (4.8-10.8)
[2019-03-28 01:53] LABS: CREATININE 5.6 mg/dL (0.5-1.5); POTASSIUM 4.3 mmol/L (3.5-5.1)
[2019-03-28 02:00] LABS: ALBUMIN 3.6 g/dL (3.5-5.0); BILIRUBIN,DIRECT 0.1 mg/dL (0.0-0.3); BILIRUBIN,TOTAL 0.6 mg/dL (0.2-1.0); TOTAL PROTEIN, SERUM 7.8 g/dL (6.0-8.3)
[2019-03-28] MEDS ORDERED: METOCLOPRAMIDE 10 MG TABLET ONE (02:41)
== END 2019-03-28 02:59 | disposition home or self-care (01) ==
LOC: EDH 23:25
DX: K86.1 Other chronic pancreatitis (principal); N18.6 End stage renal disease; Z99.2 Dependence on renal dialysis; Z98.890 Other specified postprocedural states; Z88.5 Allergy status to narcotic agent; Z88.6 Allergy status to analgesic agent; Z88.8 Allergy status to other drugs, medicaments and biological substances; Z91.041 Radiographic dye allergy status
CPT/HCPCS: 36415; 80048; 80076; 83690; 85025; 96372 ×2; 99284; J1170 ×2

== ENCOUNTER 2019-03-28 17:12 | Emergency (ER) | payer MEDICARE ==
[2019-03-28 18:00] LABS: BASOPHILS % (AUTO) 0.6 % (0.0-5.0); EOSINOPHILS % (AUTO) 1.7 % (0.0-8.0); HEMATOCRIT 29.4 % (42-54); LYMPHOCYTES % (AUTO) 27.2 % (21.0-51.0); MEAN CORPUSCULAR HEMOGLOBIN 34.3 pg (27.0-33.0); MEAN CORPUSCULAR HGB CONC 34.2 g/dL (32.0-36.0); MEAN CORPUSCULAR VOLUME 100.5 fL (79-99); MONOCYTES % (AUTO) 11.3 % (3.0-13.0); NEUTROPHILS % (AUTO) 59.2 % (40.0-77.0); NUCLEATED RED BLOOD CELLS 0.1 % (0.0-0.19); PLATELET COUNT (AUTO) 115 K/uL (130-400); RED BLOOD CELL COUNT(AUTO) 2.93 MIL/uL (4.50-6.20); RED CELL DISTRIBUTION WIDTH 18.2 % (11.0-15.5)
[2019-03-28 18:15] LABS: ABG OXYGEN SATURATION 84.2 % (95.0-99.0); BASE EXCESS,VENOUS BLOOD GAS -0.1 (-2.0-3.0); HCO3,VENOUS BLOOD GAS 26.2 (21.0-28.0); PCO2,VENOUS BLOOD GAS 49 (35-48); PH,VENOUS BLOOD GAS 7.348 (7.350-7.450)
[2019-03-28 18:18] LABS: CREATININE 7.3 mg/dL (0.5-1.5); POTASSIUM 4.2 mmol/L (3.5-5.1)
[2019-03-28] MEDS ORDERED: PROMETHAZINE HCL 25 MG/ML 1ML AMPULE IM ONE (18:20)
[2019-03-28 18:29] LABS: ALBUMIN 3.5 g/dL (3.5-5.0); BILIRUBIN,TOTAL 0.5 mg/dL (0.2-1.0); TOTAL PROTEIN, SERUM 7.7 g/dL (6.0-8.3)
[2019-03-28 18:44] LABS: EOSINOPHILS % (MANUAL) 1 % (1-6); LYMPHOCYTES % (MANUAL) 33 % (22-44); MONOCYTES % (MANUAL) 12 % (2-9); REACTIVE LYMPHOCYTES 1 % (0-0); SEGMENTED NEUTROPHILS % 53 % (40-70)
[2019-03-28 18:45] LABS: MAN.DIFF COMMENT-IMPRESSION MANUAL DIFFERENTIAL; PLATELET MORPHOLOGY COMMENT DECREASED
[2019-03-28] MEDS ORDERED: HYDROMORPHONE 1 MG/1 ML AMP ONE (19:20)
== END 2019-03-28 19:30 | disposition home or self-care (01) ==
LOC: EDH 17:12
DX: K85.90 Acute pancreatitis without necrosis or infection, unspecified (principal); R10.13 Epigastric pain; R11.2 Nausea with vomiting, unspecified; N18.6 End stage renal disease; Z99.2 Dependence on renal dialysis; Z98.890 Other specified postprocedural states; Z88.5 Allergy status to narcotic agent; Z88.6 Allergy status to analgesic agent; Z91.041 Radiographic dye allergy status; Z88.8 Allergy status to other drugs, medicaments and biological substances
CPT/HCPCS: 36415; 36600; 71045; 80053; 82803; 83605; 83690; 84484; 85025; 93005; 96372 ×2; 99285; J1170; J2550

== ENCOUNTER 2019-03-30 01:04 | Inpatient (IN) | payer MEDICARE ==
[2019-03-30] MEDS ORDERED: FAMOTIDINE 20MG TAB 20 MG TAB ONE (02:00)
[2019-03-30] MEDS ORDERED: LIDOCAINE HCL 2% VISCOUS 15 ML UDCUP ONE (02:00)
[2019-03-30] MEDS ORDERED: MAG HYDROX/AL HYDROX/SIMETH ES 30 ML SUSP UDCUP ONE (02:00)
[2019-03-30] MEDS ORDERED: PANTOPRAZOLE SODIUM 40 MG TABLET.DR PO ONE (02:01)
[2019-03-30 02:21] LABS: EOSINOPHILS % (AUTO) 5.5 % (0.0-8.0); HEMATOCRIT 28.2 % (42-54); LYMPHOCYTES % (AUTO) 31.7 % (21.0-51.0); MEAN CORPUSCULAR HEMOGLOBIN 34.3 pg (27.0-33.0); MEAN CORPUSCULAR VOLUME 100.9 fL (79-99); MONOCYTES % (AUTO) 8.6 % (3.0-13.0); NEUTROPHILS % (AUTO) 53.2 % (40.0-77.0); PLATELET COUNT (AUTO) 114 K/uL (130-400); RED CELL DISTRIBUTION WIDTH 18.5 % (11.0-15.5); WHITE BLOOD COUNT (AUTO) 4.5 K/uL (4.8-10.8)
[2019-03-30 02:37] LABS: ALBUMIN 3.8 g/dL (3.5-5.0); BILIRUBIN,TOTAL 0.5 mg/dL (0.2-1.0); INR 1.07 (0.85-1.15); PARTIAL THROMBOPLASTIN TIME 30.6 SEC (26.3-35.5); POTASSIUM 5.2 mmol/L (3.5-5.1); PROTHROMBIN TIME 11.2 SEC (9.6-11.6); TOTAL PROTEIN, SERUM 7.7 g/dL (6.0-8.3)
[2019-03-30 02:43] LABS: CREATININE 10.4 mg/dL (0.5-1.5)
[2019-03-30] MEDS ORDERED: HYDROMORPHONE 1 MG/1 ML AMP ONE ×3 (03:36→12:27)
[2019-03-30] MEDS ORDERED: FAMOTIDINE/PF 20 MG/2 ML VIAL IV ONE (03:36)
[2019-03-30] MEDS ORDERED: SODIUM CHLORIDE 0.9% 500ML 500 ML IV ONE (03:37)
[2019-03-30] MEDS ORDERED: SODIUM CHLORIDE 0.9% 1000ML 1,000 ML IV SCH (05:39)
[2019-03-30] MEDS ORDERED: HYDROMORPHONE 1 MG/1 ML AMP IV PRN (05:45)
[2019-03-30] MEDS ORDERED: FAMOTIDINE/PF 20 MG/2 ML VIAL IV SCH (09:00)
[2019-03-30] MEDS ORDERED: ENOXAPARIN SODIUM 40 MG/0.4 ML SYRINGE SQ SCH (09:00)
--- NOTE | 2019-03-30 15:13 | NUR ---
RECEIVED PATIENT TO ROOM 331 , PATIENT STATED " I NEED MY PAIN MEDICAINE TO BE CHANGED TO EVERY 4 NOT 6 OR I AM NOT GOPING TO ALLOW TO BE HOOKED UP TO THE DIALYSIS MACHINE I DONT FEEL COMFORTABLE SO PLEASE CALL THE DOCTOR THAT IF SHE DOESNT CHANGE IT I WILL JUST LEAVE". EXPLAINED TO PATIENT ON NEED FOR DIALYSIS AND NOT CLEARED BY MD TO BE DIACHARGED. PER PATIENT STATED HE EIL GO TO HIS DIALYSIS CLINIC THIS AFTERNOON.CALLED TO [facility] REGARDING PATIENT COMPLAINT ,PER LEN PAIN MED WILL NOT BE DECREASED TO EEVRY 4 HOURS IT WILL STAY AT Q 6 .PER PATIENT STATED" ILL SIGN THAT AMA PAPER AND LEAVE" .INFORMED PATIENT HE IS RESPONSIBLE DUE TO NOT BEING CLEARED,PER PAITENT STATED" I HAVE BEEN THROUGH THIS A BUNCH OF TIMES I KNOW" PATIENT SIGNED AMA FORM ,IV REMOVED ,INFORMED M [facility].
== END 2019-03-30 15:10 | disposition left against medical advice (07) | DRG 438 ==
LOC: EDH 01:04 → EDHIP 05:52 → 3CH 14:35 → 3AH 14:48
PROVIDERS: ADMIT Hospitalist; ATTEND Hospitalist
PROC: 0D9670Z Drainage of Stomach with Drainage Device, Via Natural or Artificial Opening (ICD-10-PCS; principal; 2019-03-30)
DX: K85.90 Acute pancreatitis without necrosis or infection, unspecified (principal); N18.6 End stage renal disease; K86.1 Other chronic pancreatitis; Z80.0 Family history of malignant neoplasm of digestive organs; Z96.653 Presence of artificial knee joint, bilateral; Z99.2 Dependence on renal dialysis; Z53.21 Procedure and treatment not carried out due to patient leaving prior to being seen by health care provider; Z90.49 Acquired absence of other specified parts of digestive tract; Z88.1 Allergy status to other antibiotic agents; Z88.5 Allergy status to narcotic agent; Z88.8 Allergy status to other drugs, medicaments and biological substances
CPT/HCPCS: 36415; 74176; 80053; 82550; 83605; 83690; 84484; 85025; 85610; 85730; G0378; J1170; J3490; J7040

== ENCOUNTER 2019-03-30 21:46 | Emergency (ER) | payer MEDICARE | END 2019-03-30 22:34 | disposition home or self-care (01) | LOC: EDH 21:46 | DX: G89.29 Other chronic pain (principal); R10.13 Epigastric pain; F11.20 Opioid dependence, uncomplicated; N18.6 End stage renal disease; Z99.2 Dependence on renal dialysis; Z98.890 Other specified postprocedural states; Z88.5 Allergy status to narcotic agent; Z88.6 Allergy status to analgesic agent; Z91.041 Radiographic dye allergy status | CPT/HCPCS: 99281 ==

== ENCOUNTER 2019-05-08 03:25 | Emergency (ER) | payer MEDICARE ==
[~2019-05-08 03:25] MED LIST changes: -AMOX-426 PO
== END 2019-05-08 05:30 | disposition home or self-care (01) ==
LOC: EDH 03:25
DX: R10.9 Unspecified abdominal pain (principal); N18.6 End stage renal disease; Z99.2 Dependence on renal dialysis; Z87.891 Personal history of nicotine dependence
CPT/HCPCS: 36415; 80053; 83690; 85025; 99281

== ENCOUNTER 2019-05-08 19:24 | Emergency (ER) | payer MEDICARE ==
[2019-05-08 20:10] LABS: BASOPHILS % (AUTO) 0.7 % (0.0-5.0); EOSINOPHILS % (AUTO) 7.2 % (0.0-8.0); HEMATOCRIT 27.7 % (42-54); LYMPHOCYTES % (AUTO) 31.1 % (21.0-51.0); MEAN CORPUSCULAR HGB CONC 33.8 g/dL (32.0-36.0); MEAN CORPUSCULAR VOLUME 100.6 fL (79-99); NUCLEATED RED BLOOD CELLS 0.3 % (0.0-0.19); PLATELET COUNT (AUTO) 87 K/uL (130-400); RED BLOOD CELL COUNT(AUTO) 2.76 MIL/uL (4.50-6.20); RED CELL DISTRIBUTION WIDTH 18.1 % (11.0-15.5); WHITE BLOOD COUNT (AUTO) 2.8 K/uL (4.8-10.8)
[2019-05-08 21:05] LABS: BAND NEUTROPHILS % (MANUAL) 1 % (0-2); BASOPHILS % (MANUAL) 2 % (0-2); EOSINOPHILS % (MANUAL) 9 % (1-6); LYMPHOCYTES % (MANUAL) 35 % (22-44); MAN.DIFF COMMENT-IMPRESSION MANUAL DIFFERENTIAL; MONOCYTES % (MANUAL) 3 % (2-9); SEGMENTED NEUTROPHILS % 50 % (40-70)
[2019-05-08 21:08] LABS: PLATELET MORPHOLOGY COMMENT DECREASED
[2019-05-08 21:14] LABS: CREATININE 4.6 mg/dL (0.5-1.5)
[2019-05-08 21:20] LABS: ALBUMIN 3.7 g/dL (3.5-5.0); BILIRUBIN,TOTAL 0.5 mg/dL (0.2-1.0); TOTAL PROTEIN, SERUM 7.6 g/dL (6.0-8.3)
== END 2019-05-08 21:43 | disposition home or self-care (01) ==
LOC: EDH 19:24
DX: G89.29 Other chronic pain (principal); R10.84 Generalized abdominal pain; R11.10 Vomiting, unspecified; R19.7 Diarrhea, unspecified; N18.6 End stage renal disease; Z88.6 Allergy status to analgesic agent; Z91.041 Radiographic dye allergy status; Z88.5 Allergy status to narcotic agent; Z88.8 Allergy status to other drugs, medicaments and biological substances; Z79.891 Long term (current) use of opiate analgesic; Z99.2 Dependence on renal dialysis; Z98.890 Other specified postprocedural states
CPT/HCPCS: 36415; 80053; 83690; 85025

== ENCOUNTER 2019-05-10 03:04 | Emergency (ER) | payer MEDICARE ==
[2019-05-10 08:16] LABS: BASOPHILS % (AUTO) 0.9 % (0.0-5.0); EOSINOPHILS % (AUTO) 5.6 % (0.0-8.0); HEMATOCRIT 27.1 % (42-54); LYMPHOCYTES % (AUTO) 34.4 % (21.0-51.0); MEAN CORPUSCULAR HEMOGLOBIN 33.6 pg (27.0-33.0); MEAN CORPUSCULAR HGB CONC 33.4 g/dL (32.0-36.0); MEAN CORPUSCULAR VOLUME 100.6 fL (79-99); MONOCYTES % (AUTO) 10.7 % (3.0-13.0); NEUTROPHILS % (AUTO) 48.4 % (40.0-77.0); PLATELET COUNT (AUTO) 82 K/uL (130-400); RED CELL DISTRIBUTION WIDTH 18.5 % (11.0-15.5); WHITE BLOOD COUNT (AUTO) 2.9 K/uL (4.8-10.8)
[2019-05-10] MEDS ORDERED: ONDANSETRON HCL 4 MG/2 ML VIAL ONE (08:25)
[2019-05-10] MEDS ORDERED: FAMOTIDINE/PF 20 MG/2 ML VIAL IV ONE (08:25)
[2019-05-10] MEDS ORDERED: SODIUM CHLORIDE 0.9% 500ML 500 ML IV ONE (08:26)
[2019-05-10 08:31] LABS: ALBUMIN 3.6 g/dL (3.5-5.0); BILIRUBIN,TOTAL 0.5 mg/dL (0.2-1.0); TOTAL PROTEIN, SERUM 7.4 g/dL (6.0-8.3)
[2019-05-10 08:43] LABS: CREATININE 8.2 mg/dL (0.5-1.5); POTASSIUM 6.3 mmol/L (3.5-5.1)
[2019-05-10 08:44] LABS: EOSINOPHILS % (MANUAL) 2 % (1-6); LYMPHOCYTES % (MANUAL) 1 % (22-44); MONOCYTES % (MANUAL) 2 % (2-9); SEGMENTED NEUTROPHILS % 95 % (40-70)
[2019-05-10 08:45] LABS: MAN.DIFF COMMENT-IMPRESSION MANUAL DIFFERENTIAL
[2019-05-10] MEDS ORDERED: SODIUM BICARB 50MEQ 50ML VIAL ONE (08:59)
[2019-05-10] MEDS ORDERED: CALCIUM GLUCONATE 1 GM/10 ML VIAL IV ONE (08:59)
[2019-05-10] MEDS ORDERED: INSULIN HUMULIN R 100 UNIT/ML 3ML ONE (09:00)
[2019-05-10] MEDS ORDERED: DEXTROSE 50%-WATER 50 ML DISP.SYRIN IV ONE (09:01)
== END 2019-05-10 09:53 | disposition home or self-care (01) ==
LOC: EDH 03:04
DX: G89.29 Other chronic pain (principal); R10.13 Epigastric pain; N18.6 End stage renal disease; Z99.2 Dependence on renal dialysis; Z88.5 Allergy status to narcotic agent; Z88.6 Allergy status to analgesic agent; Z88.8 Allergy status to other drugs, medicaments and biological substances; Z91.041 Radiographic dye allergy status
CPT/HCPCS: 36415; 72100; 80053; 83690; 85025; 93005; 96365; 96375; 99285; J0610; J1815; J2405; J3490 ×2; J7040; J7070

== ENCOUNTER 2019-05-11 00:27 | Emergency (ER) | payer MEDICARE | END 2019-05-11 01:07 | disposition left against medical advice (07) | LOC: EDH 00:27 | DX: R10.9 Unspecified abdominal pain (principal); N18.6 End stage renal disease; Z88.5 Allergy status to narcotic agent; Z88.6 Allergy status to analgesic agent; Z91.041 Radiographic dye allergy status; Z88.8 Allergy status to other drugs, medicaments and biological substances; Z99.2 Dependence on renal dialysis | CPT/HCPCS: 99281 ==

== ENCOUNTER 2019-05-25 02:40 | Emergency (ER) | payer MEDICARE ==
[2019-05-25] MEDS ORDERED: ONDANSETRON HCL 4 MG/2 ML VIAL ONE (03:50)
[2019-05-25] MEDS ORDERED: FAMOTIDINE/PF 20 MG/2 ML VIAL IV ONE (03:51)
[2019-05-25 03:55] LABS: BASOPHILS % (AUTO) 0.7 % (0.0-5.0); EOSINOPHILS % (AUTO) 3.9 % (0.0-8.0); HEMATOCRIT 25.9 % (42-54); LYMPHOCYTES % (AUTO) 31.9 % (21.0-51.0); MEAN CORPUSCULAR HEMOGLOBIN 33.2 pg (27.0-33.0); MEAN CORPUSCULAR HGB CONC 33.9 g/dL (32.0-36.0); MEAN CORPUSCULAR VOLUME 97.7 fL (79-99); MONOCYTES % (AUTO) 8.4 % (3.0-13.0); NEUTROPHILS % (AUTO) 55.1 % (40.0-77.0); PLATELET COUNT (AUTO) 126 K/uL (130-400); RED BLOOD CELL COUNT(AUTO) 2.65 MIL/uL (4.50-6.20); WHITE BLOOD COUNT (AUTO) 3.5 K/uL (4.8-10.8)
[2019-05-25 04:07] LABS: ALBUMIN 3.4 g/dL (3.5-5.0); BILIRUBIN,TOTAL 0.5 mg/dL (0.2-1.0)
[2019-05-25 04:09] LABS: CREATININE 8.6 mg/dL (0.5-1.5)
[2019-05-25] MEDS ORDERED: METOCLOPRAMIDE 10 MG TABLET ONE (04:17)
[2019-05-25] MEDS ORDERED: SCOPOLAMINE HYDROBROMIDE 1 EACH ADH..PATCH TD ONE (04:17)
== END 2019-05-25 05:06 | disposition home or self-care (01) ==
LOC: EDH 02:40
DX: R11.2 Nausea with vomiting, unspecified (principal); R10.13 Epigastric pain; N18.6 End stage renal disease; Z99.2 Dependence on renal dialysis; Z87.891 Personal history of nicotine dependence; Z88.5 Allergy status to narcotic agent; Z88.6 Allergy status to analgesic agent; Z88.8 Allergy status to other drugs, medicaments and biological substances; Z91.041 Radiographic dye allergy status
CPT/HCPCS: 36415; 80053; 83690; 85025; 96374; 96375; 99284; J2405; J3490

== ENCOUNTER 2019-05-28 23:02 | Emergency (ER) | payer MEDICARE ==
[~2019-05-28 23:02] MED LIST changes: +PROMETHAZINE HCL 25 MG/ML 1ML AMPULE IM ONE
[2019-05-28 23:49] LABS: BASOPHILS % (AUTO) 0.9 % (0.0-5.0); EOSINOPHILS % (AUTO) 3.9 % (0.0-8.0); HEMATOCRIT 28.3 % (42-54); LYMPHOCYTES % (AUTO) 36.7 % (21.0-51.0); MEAN CORPUSCULAR HEMOGLOBIN 33.4 pg (27.0-33.0); MEAN CORPUSCULAR HGB CONC 33.7 g/dL (32.0-36.0); MEAN CORPUSCULAR VOLUME 99.2 fL (79-99); MONOCYTES % (AUTO) 8.3 % (3.0-13.0); NEUTROPHILS % (AUTO) 50.2 % (40.0-77.0); NUCLEATED RED BLOOD CELLS 0.1 % (0.0-0.19); PLATELET COUNT (AUTO) 130 K/uL (130-400); RED BLOOD CELL COUNT(AUTO) 2.85 MIL/uL (4.50-6.20); RED CELL DISTRIBUTION WIDTH 18.7 % (11.0-15.5); WHITE BLOOD COUNT (AUTO) 3.2 K/uL (4.8-10.8)
[2019-05-29] MEDS ORDERED: SODIUM CHLORIDE 0.9% 50 ML IV ONE (00:33)
[2019-05-29 00:59] LABS: CREATININE 6.6 mg/dL (0.5-1.5); POTASSIUM 5.2 mmol/L (3.5-5.1)
[2019-05-29 01:04] LABS: ALBUMIN 3.3 g/dL (3.5-5.0); BILIRUBIN,DIRECT 0.1 mg/dL (0.0-0.3); BILIRUBIN,TOTAL 0.4 mg/dL (0.2-1.0); TOTAL PROTEIN, SERUM 6.8 g/dL (6.0-8.3)
== END 2019-05-29 01:41 | disposition home or self-care (01) ==
LOC: EDH 23:02
DX: R10.84 Generalized abdominal pain (principal); R19.7 Diarrhea, unspecified; R11.2 Nausea with vomiting, unspecified; F11.20 Opioid dependence, uncomplicated; N18.6 End stage renal disease; Z99.2 Dependence on renal dialysis; Z88.8 Allergy status to other drugs, medicaments and biological substances; Z88.6 Allergy status to analgesic agent; Z91.041 Radiographic dye allergy status
CPT/HCPCS: 36415; 80048; 83690; 85025; 96365; 99284; J2550; 80076

== ENCOUNTER 2019-05-31 21:35 | Observation (INO) | payer MEDICARE ==
[~2019-05-31 21:35] MED LIST changes: -PROMETHAZINE HCL 25 MG/ML 1ML AMPULE IM ONE
[2019-05-31 22:14] LABS: BASOPHILS % (AUTO) 0.5 % (0.0-5.0); EOSINOPHILS % (AUTO) 3.8 % (0.0-8.0); HEMATOCRIT 26.6 % (42-54); LYMPHOCYTES % (AUTO) 30.8 % (21.0-51.0); MEAN CORPUSCULAR HGB CONC 34.1 g/dL (32.0-36.0); MEAN CORPUSCULAR VOLUME 99.9 fL (79-99); NEUTROPHILS % (AUTO) 54.9 % (40.0-77.0); NUCLEATED RED BLOOD CELLS 0.1 % (0.0-0.19); PLATELET COUNT (AUTO) 110 K/uL (130-400); RED BLOOD CELL COUNT(AUTO) 2.67 MIL/uL (4.50-6.20); RED CELL DISTRIBUTION WIDTH 18.7 % (11.0-15.5); WHITE BLOOD COUNT (AUTO) 3.7 K/uL (4.8-10.8)
[2019-05-31 22:19] LABS: INR 1.06 (0.85-1.15); PARTIAL THROMBOPLASTIN TIME 29.6 SEC (26.3-35.5); PROTHROMBIN TIME 11.1 SEC (9.6-11.6)
[2019-05-31 22:21] LABS: ALANINE AMINOTRANSFERASE 7 U/L (12-78); ALBUMIN 3.4 g/dL (3.5-5.0); AMYLASE 140 U/L (25-115); ASPARTATE AMINOTRANSFERASE 14 U/L (10-37); BILIRUBIN,TOTAL 0.5 mg/dL (0.2-1.0); CARBON DIOXIDE 28 mmol/L (21-32); CHLORIDE 105 mmol/L (101-111); CREATINE KINASE, TOTAL 78 U/L (21-232); GLOMERULAR FILTR. RATE CALC 7 mL/min (>60); GLUCOSE,RANDOM 91 mg/dL (70-105); LIPASE 413 U/L (114-286); POTASSIUM 5.5 mmol/L (3.5-5.1); SODIUM SERUM 143 mmol/L (136-145); TOTAL PROTEIN, SERUM 6.9 g/dL (6.0-8.3); UREA NITROGEN, BLOOD 43 mg/dL (7-18)
[2019-05-31 22:24] LABS: CREATININE 8.4 mg/dL (0.5-1.5)
[2019-05-31 22:32] LABS: ALCOHOL, BLOOD < 3 mg/dL (0-10)
[2019-05-31 22:37] LABS: PLATELET MORPHOLOGY COMMENT LARGE PLTS PRESENT
[2019-05-31] MEDS ORDERED: SODIUM BICARB 50MEQ 50ML VIAL ONE (23:21)
[2019-05-31] MEDS ORDERED: SODIUM POLYSTYRENE SULFONATE 15 GM/60 ML ML ONE (23:21)
[2019-05-31] MEDS ORDERED: DEXTROSE 50%-WATER 50 ML DISP.SYRIN IV ONE (23:23)
[2019-05-31] MEDS ORDERED: INSULIN HUMULIN R 100 UNIT/ML 3ML ONE (23:23)
[2019-06-01] MEDS ORDERED: SODIUM CHLORIDE 0.9% 50 ML IV ONE (00:32)
[2019-06-01] MEDS ORDERED: LORAZEPAM 2 MG/ML 1 ML VIAL ONE (02:06)
[2019-06-01 06:20] LABS: BASOPHILS % (AUTO) 0.7 % (0.0-5.0); EOSINOPHILS % (AUTO) 2.2 % (0.0-8.0); HEMATOCRIT 26.6 % (42-54); LYMPHOCYTES % (AUTO) 21.4 % (21.0-51.0); MEAN CORPUSCULAR HEMOGLOBIN 33.1 pg (27.0-33.0); MEAN CORPUSCULAR HGB CONC 33.4 g/dL (32.0-36.0); MONOCYTES % (AUTO) 10.3 % (3.0-13.0); NEUTROPHILS % (AUTO) 65.4 % (40.0-77.0); PLATELET COUNT (AUTO) 110 K/uL (130-400); RED BLOOD CELL COUNT(AUTO) 2.69 MIL/uL (4.50-6.20); RED CELL DISTRIBUTION WIDTH 18.2 % (11.0-15.5); WHITE BLOOD COUNT (AUTO) 3.5 K/uL (4.8-10.8)
[2019-06-01 06:42] LABS: POTASSIUM 5.7 mmol/L (3.5-5.1)
[2019-06-01 06:45] LABS: CREATININE 9.1 mg/dL (0.5-1.5)
[2019-06-01] MEDS ORDERED: INSULIN HUMULIN R 100 UNIT/ML 3ML SQ SCH (07:30)
[2019-06-01] MEDS ORDERED: FAMOTIDINE/PF 20 MG/2 ML VIAL IV SCH (09:00)
--- NOTE | 2019-06-01 10:07 | NUR ---
LEAVING AGAINST MEDICAL ADVICE PATIENT IS IN ER HOLDING PENDING ROOM. PATIENT DECIDED TO LEAVE AGAINST MEDICAL ADVICE. THE PRIMARY NURSE AND PHYSICIAN HAVE SPOKEN TO PATIENT ALREADY, HOWEVER INSISTS ON LEAVING.
== END 2019-06-01 10:15 | disposition left against medical advice (07) ==
LOC: EDH 21:35 → EDHIP 23:13
PROVIDERS: ADMIT Internal Medicine; ATTEND Internal Medicine
DX: G93.41 Metabolic encephalopathy (principal); E87.5 Hyperkalemia; H57.04 Mydriasis; K86.1 Other chronic pancreatitis; R41.82 Altered mental status, unspecified; N18.6 End stage renal disease; Z59.0 Homelessness; Z96.653 Presence of artificial knee joint, bilateral; Z99.2 Dependence on renal dialysis; Z80.0 Family history of malignant neoplasm of digestive organs; Z88.0 Allergy status to penicillin; Z88.5 Allergy status to narcotic agent; Z79.899 Other long term (current) drug therapy
CPT/HCPCS: 36415 ×2; 70450; 71045; 80048; 80053; 82140; 82150; 82550; 82948; 83690; 84484; 85025 ×2; 85610; 85730; 93005; 99284; G0378 ×11; G0480; J1815; J3490; J7070; J2060